=== PATIENT | male | born 1980 | race Caucasian/White ===

== ENCOUNTER 2020-03-20 07:59 | Emergency (ER) | payer MEDICAID, MEDICARE ==
[~2020-03-20] VITALS: Ht 175.3 cm; Wt 58.4 kg
--- NOTE | 2020-03-20 08:26 | NUR ---
FIRST CONTACT WITH PT. PT STATES LT SIDED CP X1 WEEK AND R SIDED CP AT THIS TIME WITH NAUSEA/DZY. SEEN AT [facility] FOR SAME. PT'S AOX4. RESPS EVEN AND UNLABORED. ALL MONITORS IN PLACE. SINUS TACHY RATE 100'S ON NURSE ASSISTANT AT THIS TIME. PA AT BEDSIDE TO EVALUATE.
[2020-03-20] MEDS ORDERED: LORazepam 2 MG/ML, 1ML ONE (08:35)
[2020-03-20] MEDS ORDERED: ONDANSETRON 2MG/ML, 2ML ONE (08:35)
[2020-03-20] MEDS ORDERED: ASPIRIN 81 MG TABLET CHEW ONE (08:35)
[2020-03-20 08:53] LABS: BASOPHILS # (AUTO) 0.07 x10^3/uL (0-0.1); BASOPHILS % (AUTO) 1 % (0-1); EOSINOPHILS # (AUTO) 0.35 x10^3/uL (0-0.4); EOSINOPHILS % (AUTO) 5 % (1-7); LYMPHOCYTES # (AUTO) 3.45 x10^3/uL (1-3.4); LYMPHOCYTES % (AUTO) 48 % (22-44); MD NO; MEAN CORPUSCULAR HGB CONC 34.1 g/dL (33.2-36.2); MEAN PLATELET VOLUME 6.7 fL (7.4-10.4); MONOCYTES # (AUTO) 0.41 x10^3/uL (0.2-0.8); MONOCYTES % (AUTO) 6 % (2-9); NEUTROPHILS # (AUTO) 2.96 x10^3/uL (1.8-6.8); NEUTROPHILS % (AUTO) 41 % (42-75); PLATELET COUNT 338 x10^3/uL (130-400); RED BLOOD COUNT 4.48 x10^6/uL (4.38-5.82); RED CELL DISTRIBUTION WIDTH 13.8 % (9.4-14.8)
[2020-03-20 08:58] LABS: ALBUMIN 3.9 g/dL (3.4-5.0); ANION GAP 4 mmol/L (5-15); CALCIUM 8.8 mg/dL (8.5-10.1); CHLORIDE 106 mmol/L (98-107); CREATININE 0.99 mg/dL (0.7-1.3)
[2020-03-20] MEDS ORDERED: SODIUM CHLORIDE 0.9% 1,000ML IVBOLUS ONE (09:00)
[2020-03-20] MEDS ORDERED: ONDANSETRON 2MG/ML, 2ML IVPush ONE (09:00)
[2020-03-20] MEDS ORDERED: ASPIRIN 81 MG TABLET CHEW PO ONE (09:00)
[2020-03-20] MEDS ORDERED: LORazepam 2 MG/ML, 1ML IVPush ONE (09:00)
[2020-03-20 09:02] LABS: TROPONIN I < 0.015 ng/mL (0.000-0.045)
--- NOTE | 2020-03-20 09:09 | NUR ---
PT MEDICATED PER EMAR. PT TOLERATED WELL. PT'S AOX4. RESPS EVEN AND UNLABORED. NS INFUSING AT THIS TIME.
[2020-03-20 09:49] VITALS: BP 109/64
[2020-03-20] MEDS ORDERED: FENTANYL PF 100 MCG/2ML IV ONE (10:00)
== END 2020-03-20 10:07 | disposition home or self-care (01) ==
LOC: ED 08:36
DX: R07.89 Other chest pain (principal); R42 Dizziness and giddiness; F41.1 Generalized anxiety disorder; F15.10 Other stimulant abuse, uncomplicated; R00.0 Tachycardia, unspecified
CPT/HCPCS: 36415; 71045; 80048; 82040; 83880; 84484; 85025; 85379; 93005; 96361; 96374; 96375; 99285; J2060; J2405; J7030

== ENCOUNTER 2020-07-23 15:18 | Emergency (ER) | payer MEDICARE, MEDICAID ==
[~2020-07-23] VITALS: Ht 175.3 cm; Wt 59.4 kg
--- NOTE | 2020-07-23 15:50 | NUR ---
INTERVENTION ANALYST: PT AMBULATORY WITH STEADY GAIT TO ROOM AT THIS TIME. ROBERT
[2020-07-23 16:38] LABS: BASOPHILS # (AUTO) 0.05 x10^3/uL (0-0.1); BASOPHILS % (AUTO) 1 % (0-1); EOSINOPHILS # (AUTO) 0.39 x10^3/uL (0-0.4); EOSINOPHILS % (AUTO) 5 % (1-7); LYMPHOCYTES # (AUTO) 2.92 x10^3/uL (1-3.4); LYMPHOCYTES % (AUTO) 39 % (22-44); MD NO; MEAN CORPUSCULAR HEMOGLOBIN 29.9 pg (27.5-34.5); MEAN CORPUSCULAR HGB CONC 34.2 g/dL (33.2-36.2); MEAN CORPUSCULAR VOLUME 87.3 fL (81-97); MEAN PLATELET VOLUME 7.4 fL (7.4-10.4); MONOCYTES # (AUTO) 0.61 x10^3/uL (0.2-0.8); MONOCYTES % (AUTO) 8 % (2-9); NEUTROPHILS % (AUTO) 48 % (42-75); PLATELET COUNT 304 x10^3/uL (130-400); RED BLOOD COUNT 4.67 x10^6/uL (4.38-5.82); RED CELL DISTRIBUTION WIDTH 13.5 % (9.4-14.8)
[2020-07-23 16:52] LABS: ALBUMIN 4.1 g/dL (3.4-5.0); ANION GAP 4 mmol/L (5-15); CALCIUM 9.1 mg/dL (8.5-10.1); CHLORIDE 109 mmol/L (98-107); CREATININE 0.77 mg/dL (0.7-1.3)
[2020-07-23 16:56] LABS: TROPONIN I < 0.015 ng/mL (0.000-0.045)
[2020-07-23 17:42] VITALS: BP 125/86
== END 2020-07-23 17:43 | disposition home or self-care (01) ==
LOC: ED 17:30
DX: R07.89 Other chest pain (principal); R06.00 Dyspnea, unspecified; L02.212 Cutaneous abscess of back [any part, except buttock and flank]; F15.10 Other stimulant abuse, uncomplicated; F11.10 Opioid abuse, uncomplicated; F41.9 Anxiety disorder, unspecified; Z72.9 Problem related to lifestyle, unspecified
CPT/HCPCS: 36415; 71046; 80048; 82040; 84484; 85025; 93005; 99285

== ENCOUNTER 2020-12-07 00:39 | Emergency (ER) | payer MEDICARE, MEDICAID ==
[~2020-12-07] VITALS: Ht 170.2 cm; Wt 55.0 kg
[~2020-12-07 00:39] MED LIST: BICT1TAB PO; CARB1TAB22 PO; CEPH-368 PO; MULT-707 PO; MUPI22OI2 TP; SENN1TAB94 PO
[2020-12-07] MEDS ORDERED: LIDOCAINE 1%-EPI 1:100K, 20ML INFIL ONE (01:30)
[2020-12-07 03:06] VITALS: BP 118/80
--- NOTE | 2020-12-07 03:07 | NUR ---
Pt dc'd with written and verbal instuctions. Pt states understanding. Pt instructed to f/u for suture removal. Pt steady on feet, A&O, ambulated out of ED without difficulty.
== END 2020-12-07 03:11 | disposition home or self-care (01) ==
LOC: ED 01:04
DX: F11.10 Opioid abuse, uncomplicated (principal); F15.10 Other stimulant abuse, uncomplicated; R22.9 Localized swelling, mass and lump, unspecified; F17.200 Nicotine dependence, unspecified, uncomplicated
CPT/HCPCS: 88307; 99283

== ENCOUNTER 2021-05-14 18:13 | Emergency (ER) | payer MEDICARE, MEDICAID ==
[~2021-05-14] VITALS: Ht 175.3 cm; Wt 65.0 kg
[2021-05-14 19:34] LABS: BASOPHILS % (AUTO) 1 % (0-1); EOSINOPHILS % (AUTO) 4 % (1-7); LYMPHOCYTES % (AUTO) 39 % (22-44); MEAN CORPUSCULAR HEMOGLOBIN 28.5 pg (27.5-34.5); MEAN CORPUSCULAR HGB CONC 34.2 g/dL (33.2-36.2); MEAN PLATELET VOLUME 6.8 fL (7.4-10.4); MONOCYTES % (AUTO) 8 % (2-9); NEUTROPHILS % (AUTO) 47 % (42-75); PLATELET COUNT 383 x10^3/uL (130-400); RED BLOOD COUNT 4.66 x10^6/uL (4.38-5.82); RED CELL DISTRIBUTION WIDTH 13.4 % (9.4-14.8)
[2021-05-14 19:46] LABS: ALBUMIN 3.7 g/dL (3.4-5.0); CALCIUM 9.1 mg/dL (8.5-10.1); CHLORIDE 106 mmol/L (98-107)
[2021-05-14 19:51] LABS: ALANINE AMINOTRANSFERASE 57 U/L (12-78); ALKALINE PHOSPHATASE 92 U/L (45-117); CREATININE 0.64 mg/dL (0.7-1.3); TOTAL PROTEIN 8.1 g/dL (6.4-8.2)
[2021-05-14 20:03] LABS: ANION GAP 4 mmol/L (5-15)
--- NOTE | 2021-05-14 20:45 | NUR ---
pt walked into ed today due to waking up with left hand numbess/tingling/weakness. pt states he thought he slept on it wrong, however the feeling did not fade, no hx of strokes/arrythmia/TIAs. pt reports the tingling feeling goes up the left side to the mid bicep area. pt has decreased gripstrength on that side and states it feels as though he cannot control his fingers fully. pt nad, placed on spo2/bp/ecg monitoring. wctm.
[2021-05-14 22:47] VITALS: BP 115/87
--- NOTE | 2021-05-14 23:19 | NUR ---
CARE ASSUMED FOR DC. PT DC'D HOME WITH UNDERSTANDING OF INSTRUCTIONS. PT ESCORTED TO DC DESK. GAIT STEADY.
== END 2021-05-14 23:23 | disposition home or self-care (01) ==
LOC: ED 22:45
DX: S54.22XA Injury of radial nerve at forearm level, left arm, initial encounter (principal); R94.31 Abnormal electrocardiogram [ECG] [EKG]; F17.200 Nicotine dependence, unspecified, uncomplicated; Z21 Asymptomatic human immunodeficiency virus [HIV] infection status; X58.XXXA Exposure to other specified factors, initial encounter; Y93.89 Activity, other specified; Y92.89 Other specified places as the place of occurrence of the external cause; Y99.8 Other external cause status
CPT/HCPCS: 29125; 36415; 80053; 80320; 82962; 85025; 93005; 99284; G0480